=== PATIENT | female | born 1975 | race Caucasian/White ===

== ENCOUNTER → 2017-07-14 | Outpatient (CLI) | payer MEDICAID | LOC: BRMIMAGING 14:48 | PROVIDERS: ATTEND Family Medicine | DX: Z12.31 Encounter for screening mammogram for malignant neoplasm of breast (principal); Z80.3 Family history of malignant neoplasm of breast ==

== ENCOUNTER → 2018-08-09 | Outpatient (CLI) | payer MEDICAID | LOC: BRMIMAGING 09:19 ==